=== PATIENT | female | born 1945 | race Caucasian/White ===

== ENCOUNTER 2016-12-14 17:59 | Inpatient (IN) | payer MEDICARE ==
[~2016-12-14] VITALS: Ht 152.4 cm; Wt 93.5 kg
[~2016-12-14 17:59] MED LIST: ALPR-475 PO; LEVO25TA4 PO; LOPE1LIQ6 PO; UNK BP MED PO; [UNRECOGNIZED DRUG - REMARK] PO
[2016-12-14] MEDS ORDERED: SODIUM CHLORIDE FLUSH 10ML SYR IVF ONE (19:00)
[2016-12-14] MEDS ORDERED: SODIUM CHLORIDE 0.9% 1,000ML IVBOLUS ONE (19:00)
[2016-12-14 19:24] LABS: HEMOGLOBIN 15.1 g/dL (11.7-16.4)
[2016-12-14 19:32] LABS: ASPARTATE AMINO TRANSFERASE 25 U/L (15-37); BLOOD UREA NITROGEN 18 mg/dL (7-18)
[2016-12-14 19:41] LABS: IS PT STATUS REG ER OR PRE ER? YES
[2016-12-14 19:44] LABS: PATH.CAST-FLAG NOT PRESENT; SPERM-FLAG NOT PRESENT; SRC-FLAG NOT PRESENT; XTAL-FLAG NOT PRESENT; YLC-FLAG NOT PRESENT
[2016-12-14] MEDS ORDERED: GLIM2TAB2 PO (20:12)
[2016-12-14] MEDS ORDERED: VENL150C6 PO (20:12)
[2016-12-14] MEDS ORDERED: ASPI-496 PO (20:12)
[2016-12-14] MEDS ORDERED: LEVOFLOXACIN/PMX 750MG/150ML 150 ML IVPB ONE (20:30)
[2016-12-14] MEDS ORDERED: LEVOFLOXACIN/PMX 750MG/150ML 150 ML ONE (21:27)
[2016-12-14] MEDS ORDERED: POLYETHYLENE GLYCOL 17 GM PACKET PO PRN (21:30)
[2016-12-14] MEDS ORDERED: BISACODYL 10 MG SUPP PR PRN (21:30)
[2016-12-14] MEDS ORDERED: ACETAMINOPHEN 325 MG TABLET PO PRN (21:30)
[2016-12-14] MEDS ORDERED: DOCUSATE 100 MG CAPSULE PO PRN (21:30)
[2016-12-14] MEDS ORDERED: ONDANSETRON ODT 4 MG PO PRN (21:30)
[2016-12-14 22:10] VITALS: BP 145/76
[2016-12-14] MEDS: SODIUM CHLORIDE 0.9% 1,000 ML IV SCH (23:22)
[2016-12-14] MEDS: ENOXAPARIN 40 MG/0.4 ML SQ SCH (23:22)
[2016-12-14] MEDS: NICOTINE 14MG/24 HR PATCH.TD24 TD SCH (23:23)
[2016-12-14] MEDS: ATORVASTATIN 40 MG TABLET PO SCH (23:23)
[2016-12-14] MEDS: TRAZODONE 50MG TABLET PO PRN (23:23)
[2016-12-15] MEDS: AMPICILLIN/SULBACTAM 3 GM in SODIUM CHLORIDE 0.9% 100 ML IV SCH ×4 (00:30→18:16)
[2016-12-15 04:08] VITALS: BP 138/65
[2016-12-15] MEDS: SODIUM CHLORIDE 0.9% 1,000 ML IV SCH ×2 (05:00→18:16)
[2016-12-15] MEDS: LEVOTHYROXINE 25 MCG TABLET PO SCH (05:40)
[2016-12-15 06:11] LABS: HEMOGLOBIN 13.1 g/dL (11.7-16.4)
[2016-12-15 06:22] LABS: ASPARTATE AMINO TRANSFERASE 19 U/L (15-37); BLOOD UREA NITROGEN 15 mg/dL (7-18)
[2016-12-15] MEDS: INSULIN ASPART 100 UNITS/ML, PEN SQ-INSULIN SCH ×4 (07:00→20:58)
[2016-12-15 07:58] VITALS: BP 133/74
[2016-12-15] MEDS: ASPIRIN 81 MG TABLET EC PO SCH (08:24)
[2016-12-15] MEDS: VENLAFAXINE 75 MG CAP ER PO SCH (08:25)
[2016-12-15] MEDS ORDERED: GADOBUTROL 10 MMOL/10 ML PFS ONE (09:17)
[2016-12-15 14:12] VITALS: BP 134/82
[2016-12-15] MEDS: LORazepam 0.5MG TABLET PO PRN ×2 (15:28→22:44)
[2016-12-15] MEDS: LOPERAMIDE 2 MG CAPSULE PO PRN ×2 (16:27→22:44)
[2016-12-15] MEDS: ATORVASTATIN 40 MG TABLET PO SCH (20:50)
[2016-12-15] MEDS: ENOXAPARIN 40 MG/0.4 ML SQ SCH (20:50)
[2016-12-15] MEDS: NICOTINE 14MG/24 HR PATCH.TD24 TD SCH (20:51)
[2016-12-15] MEDS: TRAZODONE 50MG TABLET PO PRN (20:51)
[2016-12-15 21:00] VITALS: BP 160/91
[2016-12-16] MEDS: AMPICILLIN/SULBACTAM 3 GM in SODIUM CHLORIDE 0.9% 100 ML IV SCH ×2 (00:10→06:09)
[2016-12-16 02:24] VITALS: BP 189/75
[2016-12-16] MEDS: LABETALOL 5MG/ML, 20ML IV PRN ×2 (02:39→08:48)
[2016-12-16] MEDS: SODIUM CHLORIDE 0.9% 1,000 ML IV SCH (02:39)
[2016-12-16 04:00] VITALS: BP 142/70
[2016-12-16] MEDS: LEVOTHYROXINE 25 MCG TABLET PO SCH (06:09)
[2016-12-16] MEDS: INSULIN ASPART 100 UNITS/ML, PEN SQ-INSULIN SCH ×2 (07:00→11:00)
[2016-12-16 07:54] VITALS: BP 178/74
[2016-12-16] MEDS: VENLAFAXINE 75 MG CAP ER PO SCH (08:46)
[2016-12-16] MEDS: ASPIRIN 81 MG TABLET EC PO SCH (08:46)
[2016-12-16 08:49] VITALS: BP 154/77
[2016-12-16 12:53] VITALS: BP 175/85
[2016-12-16] MEDS ORDERED: DOXY100T PO (13:06)
[2016-12-16] MEDS ORDERED: CEFD300C2 PO (13:06)
== END 2016-12-16 15:09 | disposition home or self-care (01) | DRG 177 ==
LOC: ED 18:39 → EDIP 20:20 → 4WST 22:07
PROVIDERS: ADMIT Internal Medicine; ATTEND Internal Medicine
DX: J69.0 Pneumonitis due to inhalation of food and vomit (principal); G93.41 Metabolic encephalopathy; E87.1 Hypo-osmolality and hyponatremia; E03.9 Hypothyroidism, unspecified; F10.10 Alcohol abuse, uncomplicated; F39 Unspecified mood [affective] disorder; K52.9 Noninfective gastroenteritis and colitis, unspecified; B96.20 Unspecified Escherichia coli [E. coli] as the cause of diseases classified elsewhere; E11.9 Type 2 diabetes mellitus without complications; F17.210 Nicotine dependence, cigarettes, uncomplicated; W01.0XXA Fall on same level from slipping, tripping and stumbling without subsequent striking against object, initial encounter; I10 Essential (primary) hypertension; I65.29 Occlusion and stenosis of unspecified carotid artery; Z82.0 Family history of epilepsy and other diseases of the nervous system; Z86.73 Personal history of transient ischemic attack (TIA), and cerebral infarction without residual deficits; Y93.89 Activity, other specified; Y92.89 Other specified places as the place of occurrence of the external cause; Y99.8 Other external cause status; Z90.710 Acquired absence of both cervix and uterus; Z98.49 Cataract extraction status, unspecified eye; Z88.2 Allergy status to sulfonamides
CPT/HCPCS: 36415; 70450; 70553; 71010; 80053; 80061; 81001; 82550; 82962; 83036; 83605; 83735; 84145; 84439; 84443; 84484; 85025; 87040; 87077; 87086; 87186; 87324; 93005; 93880; 95819; 96374; A9585; J0295; J1650; J1815; J1956; J7030